=== PATIENT | male | born 1955 | race Caucasian/White ===

== ENCOUNTER 2021-05-01 23:20 | Inpatient (IN) | payer MEDICAID ==
[~2021-05-01] VITALS: Ht 167.6 cm; Wt 74.2 kg
[2021-05-02 01:05] LABS: BASOPHILS % 0.2 % (0.0-2.0); EOSINOPHILS % 0.4 % (0.0-5.0); HEMATOCRIT. 46.7 % (42.0-52.0); HEMOGLOBIN. 16.2 g/dL (14.0-18.0); LYMPHOCYTES % 21.3 % (20.0-50.0); MEAN CORPUSCULAR HEMOGLOBIN 29.9 pg (28.0-32.0); MEAN CORPUSCULAR VOLUME 86.1 fL (80.0-94.0); MONOCYTES % 9.2 % (2.0-8.0); NEUTROPHILS % 68.9 % (40.0-76.0); PLATELET 262 x1000/uL (130-400); RED BLOOD CELL COUNT 5.42 mill/uL (4.7-6.1); RED CELL DISTRIBUTION WIDTH 13.1 % (11.6-14.6)
[2021-05-02 01:10] LABS: CHLORIDE 100 mEq/L (98-107)
[2021-05-02] MEDS ORDERED: AZITHROMYCIN 500MG/250ML 250 ML IV ONE (02:30)
[2021-05-02] MEDS ORDERED: CEFTRIAXONE 1 G PREMIX 50 ML IV ONE (02:30)
[2021-05-02] MEDS ORDERED: AZITHROMYCIN 500 MG in DEXT 5% WATER 250 ML IV SCH (03:00)
[2021-05-02] MEDS ORDERED: ACETAMINOPHEN 325MG TABLET PO PRN ×2 (09:45)
[2021-05-02] MEDS ORDERED: GUAIFENESIN 200MG/10ML SUGAR FREE UDC PO PRN (09:45)
[2021-05-02] MEDS ORDERED: MAGNESIUM/ALUMINUM HYDROXIDE/SIMETHICONE 30ML UDC PO PRN (09:45)
[2021-05-02] MEDS ORDERED: CLONIDINE 0.1MG TABLET PO PRN (09:45)
[2021-05-02] MEDS ORDERED: ONDANSETRON HCL 4MG/2ML INJ IV PRN (09:45)
[2021-05-02 10:00] VITALS: BP 115/73
[2021-05-02 12:00] VITALS: BP 111/66
[2021-05-02] MEDS: ENOXAPARIN 40MG/0.4ML SYR SUBCUT SCH (13:28)
[2021-05-02] MEDS: DEXAMETHASONE 10 MG/ML VIAL IV SCH (13:28)
[2021-05-02] MEDS ORDERED: DEXTROSE 50% WATER 50ML SYRINGE IV PRN (14:30)
[2021-05-02 16:00] VITALS: BP 101/75
[2021-05-02] MEDS: BLOOD SUGAR DIAGNOSTIC STRIP TEST SCH ×2 (17:40→21:41)
[2021-05-02] MEDS: INSULIN LISPRO 100 UNITS/ML SUBCUT SCH ×2 (17:58→21:41)
[2021-05-02 20:00] VITALS: BP 116/70
[2021-05-02 20:10] LABS: CHLORIDE 104 mEq/L (98-107)
[2021-05-02] MEDS: ASCORBIC ACID 500 MG TABLET PO SCH (21:38)
[2021-05-02] MEDS: CHOLECALCIFEROL (D3) 1000 UNIT TABLET PO SCH (21:38)
[2021-05-03] VITALS: BP 111/71
[2021-05-03 04:00] VITALS: BP 91/56
[2021-05-03] MEDS: INSULIN LISPRO 100 UNITS/ML SUBCUT SCH ×2 (06:24→13:11)
[2021-05-03] MEDS: BLOOD SUGAR DIAGNOSTIC STRIP TEST SCH ×2 (06:24→12:42)
[2021-05-03 07:47] LABS: CHLORIDE 107 mEq/L (98-107)
[2021-05-03 08:00] VITALS: BP 92/62
[2021-05-03 08:18] LABS: BASOPHILS % 0.6 % (0.0-2.0); HEMATOCRIT. 41.7 % (42.0-52.0); HEMOGLOBIN. 14.4 g/dL (14.0-18.0); MEAN CORPUSCULAR HEMOGLOBIN 29.3 pg (28.0-32.0); MEAN CORPUSCULAR VOLUME 84.8 fL (80.0-94.0); MONOCYTES % 8.6 % (2.0-8.0); NEUTROPHILS % 66.8 % (40.0-76.0); PLATELET 306 x1000/uL (130-400); RED BLOOD CELL COUNT 4.91 mill/uL (4.7-6.1); RED CELL DISTRIBUTION WIDTH 13.2 % (11.6-14.6)
[2021-05-03] MEDS: ASCORBIC ACID 500 MG TABLET PO SCH (09:56)
[2021-05-03] MEDS: CHOLECALCIFEROL (D3) 1000 UNIT TABLET PO SCH (09:56)
[2021-05-03] MEDS: DEXAMETHASONE 10 MG/ML VIAL IV SCH (10:00)
[2021-05-03] MEDS: ENOXAPARIN 40MG/0.4ML SYR SUBCUT SCH (10:02)
[2021-05-03 12:00] VITALS: BP 108/59
[2021-05-03 12:53] LABS: BG BASE EXCESS -1.5 mmol/L (-2.0-2.0); BG CARBOXYHEMOGLOBIN 0.2 % (0.5-1.5); BG DEOXYHEMOGLOBIN 6.6 % (0.0-5.0); BG FRACTION INSPIRED OXYGEN 28; BG HCO3 ACT 21.3 mmol/L (22.0-26.0); BG METHEMOGLOBIN 0.2 % (0.0-1.5); BG OXYGEN SATURATION 93.4 % (92.0-98.5); BG PCO2 31.2 mmHg (35.0-45.0); BG PH 7.453 (7.350-7.450); BG PO2 65.5 mmHg (75.0-100.0); BG SAMPLE SITE RIGHT RADIAL; BG TOTAL HEMOGLOBIN 15.4 g/dL (12.0-18.0); BG VENT MODE NASAL CANNULA
[2021-05-03] MEDS ORDERED: ALBU18HF2 IH (12:53)
[2021-05-03] MEDS ORDERED: MED4 MT (12:53)
[2021-05-03] MEDS ORDERED: METF-414 PO (12:53)
[2021-05-03 13:40] VITALS: BP 108/59
== END 2021-05-03 15:30 | disposition home or self-care (01) | DRG 720 ==
LOC: ER 23:20 → MICUSO 05-02 02:23 → 8WST 05-02 09:35
PROVIDERS: ADMIT Internal Medicine; ATTEND Internal Medicine
DX: A41.89 Other specified sepsis (principal); J96.01 Acute respiratory failure with hypoxia; J12.82 Pneumonia due to coronavirus disease 2019; E11.9 Type 2 diabetes mellitus without complications; I10 Essential (primary) hypertension; U07.1 COVID-19; E11.65 Type 2 diabetes mellitus with hyperglycemia; R74.01 Elevation of levels of liver transaminase levels
CPT/HCPCS: 36415; 36600; 71045; 80048; 80053; 82375; 82728; 82805; 82962; 83036; 83615; 83735; 83880; 84100; 84145; 84484; 85025; 86140; 87426; 93005; 99285; J0456; J0696; J1100; J1650; J1815; J7060